=== PATIENT | female | born 1980 | race Caucasian/White ===

== ENCOUNTER 2022-07-11 02:22 | Emergency (ER) | payer MEDICAID, OTHER ==
[~2022-07-11] VITALS: Ht 165.1 cm; Wt 59.0 kg
--- NOTE | 2022-07-11 02:34 | NUR ---
BIBS FOR L SIDED FACIAL SWELLING AND HAVING HARD TIME SWALLOWING. PT A/OX4. TOLERATING R/A WELL WITH NO RESP DISTRESS. CONNECTED PT TO POX AND MONITOR. SAFETY MEASURES IN PLACE.
--- NOTE | 2022-07-11 02:35 | NUR ---
URINE COLLECTED AND SENT TO LAB
--- NOTE | 2022-07-11 02:44 | NUR ---
LFA #20G S/L BLOOD COLLECTED AND SENT TO LAB
--- NOTE | 2022-07-11 02:44 | NUR ---
WAIVER FORM SIGNED; VERBALIZED UNDERSTANDING
[2022-07-11 03:22] LABS: BASOPHILS # (AUTO) 0.1 K/uL (0.0-0.2); BASOPHILS % (AUTO) 1.2 % (0.0-2.0); EOSINOPHILS % (AUTO) 2.9 % (0.0-6.0); HEMATOCRIT 41 % (33-45); HEMOGLOBIN 13.6 g/dL (11.5-14.8); LYMPHOCYTES # (AUTO) 3.3 K/uL (0.8-4.8); LYMPHOCYTES % (AUTO) 30.8 % (20.0-44.0); MEAN CORPUSCULAR HGB CONC 33 g/dl (31.0-36.0); MEAN CORPUSCULAR VOLUME 98 fL (82-100); MONOCYTES # (AUTO) 0.7 K/uL (0.1-1.30); MONOCYTES % (AUTO) 6.3 % (2.0-12.0); NEUTROPHILS # (AUTO) 6.3 K/uL (1.8-8.9); NEUTROPHILS % (AUTO) 58.8 % (43.0-81.0); PLATELET COUNT (AUTO) 440 K/uL (150-450); RED BLOOD CELL COUNT(AUTO) 4.15 MIL/uL (4.0-5.2); WHITE BLOOD COUNT (AUTO) 10.7 K/uL (4.3-11.0)
[2022-07-11] MEDS ORDERED: IV NS 0.9% 250 ML IV ONE (03:22)
[2022-07-11] MEDS ORDERED: IOHEXOL-350 100 ML VIAL IV ONE (03:22)
[2022-07-11] MEDS ORDERED: CT SWABBABLE VALVE TRANS SET 1 EA INFUS.SET MC ONE (03:22)
[2022-07-11 03:34] LABS: CALCIUM, SERUM 9.3 mg/dL (8.5-10.1); CREATININE 0.8 mg/dL (0.6-1.3)
--- NOTE | 2022-07-11 03:49 | NUR ---
PT TAKEN TO CT VIA W/C
--- NOTE | 2022-07-11 04:10 | NUR ---
PT RETURNED TO ER BED [address]
[2022-07-11] MEDS ORDERED: PENI500T PO (05:51)
[2022-07-11] MEDS ORDERED: IBUP-1955 PO (07:08)
[2022-07-11] MEDS ORDERED: DOXY100C2 PO (07:08)
[2022-07-11] MEDS ORDERED: AMOX-430 PO (07:08)
[2022-07-11 07:11] VITALS: BP 118/84
[2022-07-11] MEDS ORDERED: DEXAMETHASONE SOD PHOSPHATE 10 MG/ML VIAL ONE (07:19)
--- NOTE | 2022-07-11 07:23 | NUR ---
Patient discharged to home in stable condition. Written and verbal after care instructions given. Patient verbalizes understanding of instruction.
[2022-07-11] MEDS ORDERED: DEXAMETHASONE SOD PHOSPHATE 10 MG/ML VIAL IM ONE (07:30)
== END 2022-07-11 07:12 | disposition home or self-care (01) ==
LOC: ER 02:26
DX: K04.7 Periapical abscess without sinus (principal); F41.9 Anxiety disorder, unspecified; F17.200 Nicotine dependence, unspecified, uncomplicated; Z85.3 Personal history of malignant neoplasm of breast
CPT/HCPCS: 99285; 70487; 85025; 80048; 84703; 36415; 96372; J1100; J7050; A6403; Q9967